=== PATIENT | male | born 1975 | race Caucasian/White ===

== ENCOUNTER 2017-03-06 20:28 | Emergency (ER) | payer BC ==
[~2017-03-06] VITALS: Ht 160 cm; Wt 70.0 kg
[~2017-03-06 20:28] MED LIST: APIX5TAB PO; ASPI81TA81; BACL20TA PO; LEXA10TA PO; LIPI20TA PO; PROT40TA PO
[2017-03-06 20:30] VITALS: BP 121/81; PULSE 72; RESP 16; TEMP 98.4; O2SAT 97
[2017-03-06] MEDS ORDERED: BACT400T PO (20:37)
--- NOTE | 2017-03-06 20:48 | PD ---
HPI Chief Complaint: Bleeding Time Seen by Provider: 20:35 Travel History International Travel<30 days: No Contact w/Intl Traveler<30days: No Traveled to known affect area: No History of Present Illness HPI 41-year-old male complains of persistent bleeding from the left buttock. Patient has history of left buttock abscess for the past week. Patient was seen by colorectal surgeon Dr. Price this morning and had an I&D done in the office. Patient had dressing in place and was advised to change dressing in the daytime. Patient has persistent bleeding on the left buttock since the procedure done this morning. Patient has history of CVA on Eliquis and aspirin daily. Last dose of aspirin was yesterday. Last dose Eliquis was this morning. Patient denies any headache. Patient denies any chest pain or shortness of breath. Patient denies abdominal pain. PFSH Past Medical History High Cholesterol: Yes Cerebrovascular Accident: Yes (05/2014) Social History Alcohol Use: No Tobacco Use: No Substance Use: No Allergies-Medications (Allergen,Severity, Reaction): Coded Allergies: No Known Allergies (Unverified , 03/06/17) Reported Meds & Prescriptions Reported Meds & Active Scripts Active Baclofen 20 Mg Tab 20 Mg PO TID Reported Bactrim (Sulfamethoxazole-Trimethoprim) 400-80 Mg Tab 1 Tab PO BID Eliquis (Apixaban) 5 Mg Tab 5 Mg PO DAILY Protonix (Pantoprazole Sodium) 40 Mg Tab 40 Mg PO DAILY Lipitor (Atorvastatin Calcium) 20 Mg Tab 20 Mg PO HS Lexapro (Escitalopram Oxalate) 10 Mg Tab 10 Mg PO DAILY Aspir-81 (Aspirin) 81 Mg Tabdr DAILY Review of Systems General / Constitutional: No: Fever Eyes: No: Visual changes HENT: No: Headaches Cardiovascular: No: Chest Pain or Discomfort Respiratory: No: Shortness of Breath Gastrointestinal: No: Abdominal Pain Genitourinary: No: Dysuria Musculoskeletal: No: Pain Skin: No Rash Neurologic: No: Weakness Psychiatric: No: Depression Endocrine: No: Polydipsia Hematologic/Lymphatic: No: Easy Bruising Physical Exam Narrative GENERAL: Well-nourished, well-developed patient. SKIN: Focused skin assessment warm/dry. HEAD: Normocephalic. EYES: No scleral icterus. No injection or drainage. NECK: Supple, trachea midline. No JVD or lymphadenopathy. CARDIOVASCULAR: Regular rate and rhythm without murmurs, gallops, or rubs. RESPIRATORY: Breath sounds equal bilaterally. No accessory muscle use. GASTROINTESTINAL: Abdomen soft, non-tender, nondistended. MUSCULOSKELETAL: No cyanosis, or edema. BACK: Nontender without obvious deformity. No CVA tenderness. Patient has about 4 cm open and deep wound of left buttock associated redness swelling tenderness. Patient has a small mild blood oozing from the wound. Data Data Last Documented VS Vital Signs Date Time Temp Pulse Resp B/P (MAP) Pulse Ox O2 Delivery O2 Flow Rate FiO2 03/06/17 20:30 98.4 72 16 121/81 (94) 97 Orders Orders Complete Blood Count With Diff (03/06/17 20:45) Basic Metabolic Panel (Bmp) (03/06/17 20:45) Prothrombin Time / Inr (Pt) (03/06/17 20:45) Act Partial Throm Time (Ptt) (03/06/17 20:45) Iv Access Insert/Monitor (03/06/17 20:45) Ecg Monitoring (03/06/17 20:45) Oximetry (03/06/17 20:45) Lidocai-Epi 1%-1:100,000 Inj (Xylocaine- (03/06/17 21:00) Lidocai-Epi 1%-1:100,000 Inj (Xylocaine- (03/06/17 21:01) Ed Discharge Order (03/06/17 22:44) Labs Laboratory Tests Test 03/06/17 21:00 White Blood Count 9.7 TH/MM3 Red Blood Count 4.30 MIL/MM3 Hemoglobin 12.8 GM/DL Hematocrit 38.3 % Mean Corpuscular Volume 89.1 FL Mean Corpuscular Hemoglobin 29.7 PG Mean Corpuscular Hemoglobin Concent 33.3 % Red Cell Distribution Width 13.1 % Platelet Count 262 TH/MM3 Mean Platelet Volume 8.8 FL Neutrophils (%) (Auto) 60.8 % Lymphocytes (%) (Auto) 27.5 % Monocytes (%) (Auto) 5.8 % Eosinophils (%) (Auto) 4.8 % Basophils (%) (Auto) 1.1 % Neutrophils # (Auto) 5.9 TH/MM3 Lymphocytes # (Auto) 2.7 TH/MM3 Monocytes # (Auto) 0.6 TH/MM3 Eosinophils # (Auto) 0.5 TH/MM3 Basophils # (Auto) 0.1 TH/MM3 CBC Comment DIFF FINAL Differential Comment Prothrombin Time 11.3 SEC Prothromb Time International Ratio 1.0 RATIO Activated Partial Thromboplast Time 31.0 SEC Blood Urea Nitrogen 6 MG/DL Creatinine 0.72 MG/DL Random Glucose 80 MG/DL Calcium Level 8.9 MG/DL Sodium Level 137 MEQ/L Potassium Level 3.6 MEQ/L Chloride Level 106 MEQ/L Carbon Dioxide Level 19.9 MEQ/L Anion Gap 11 MEQ/L Estimat Glomerular Filtration Rate 120 ML/MIN MDM Medical Decision Making Medical Screen Exam Complete: Yes Emergency Medical Condition: Yes Differential Diagnosis Differential diagnosis including bleeding from wound. Narrative Course 41-year-old male with persistent bleeding from I&D wound left buttock. Patient had I&D left buttock abscess this morning. Patient status post CVA and and Patient's on aspirin and Eliquis. I spoke with Dr. Gee advised patient to follow-up with Dr. Farmer. Advised patient to stop Eliquis for one day. Procedures Procedure Narrative 1% lidocaine with epinephrine injected to the wound. Packing applied. The bleeding stopped. Dressing applied. Diagnosis Primary Impression: Bleeding from wound Patient Instructions: General Instructions Additional Instructions: Wound care daily. Follow-up with personal physician. Return if persistent bleeding. Med/Other Pt SpecificInfo: No Change to Meds Disposition: 01 DISCHARGE HOME Condition: Stable Christopher Greer MD Mar 06, 2017 20:48
[2017-03-06] MEDS ORDERED: LIDOCAINE 1%/EPINEPHrine 1:100,000 SOLN 20 ML VIAL INFIL ONE (21:00)
[2017-03-06] MEDS ORDERED: LIDOCAINE 1%/EPINEPHrine 1:100,000 SOLN 50 ML VIAL ONE (21:01)
[2017-03-06 21:51] LABS: AUTOMATED NEUTROPHIL # 5.9 TH/MM3 (1.8-7.7); BASOPHIL # 0.1 TH/MM3 (0-0.2); BASOPHIL % 1.1 % (0.0-2.0); EOSINOPHIL # 0.5 TH/MM3 (0-0.4); EOSINOPHIL % 4.8 % (0.0-4.0); HEMATOCRIT 38.3 % (39.0-51.0); HEMO FLAGS DIFF FINAL; LYMPH % 27.5 % (9.0-44.0); LYMPHOCYTE # 2.7 TH/MM3 (1.0-4.8); MEAN CELL VOLUME 89.1 FL (80.0-100.0); MEAN CORPUSCULAR HEMOGLOBIN 29.7 PG (27.0-34.0); MEAN CORPUSCULAR HGB CONC 33.3 % (32.0-36.0); MONO % 5.8 % (0.0-8.0); NEUT % 60.8 % (16.0-70.0); PLATELET COUNT 262 TH/MM3 (150-450); RED CELL DISTRIBUTION WIDTH 13.1 % (11.6-17.2); WHITE BLOOD COUNT 9.7 TH/MM3 (4.0-11.0)
[2017-03-06 22:00] LABS: PROTHROMBIN TIME - PATIENT 11.3 SEC (9.8-11.6)
[2017-03-06 22:09] LABS: BICARBONATE 19.9 MEQ/L (21.0-32.0); POTASSIUM 3.6 MEQ/L (3.5-5.1)
== END 2017-03-06 23:08 | disposition home or self-care (01) ==
LOC: NEPE 20:28
DX: L02.31 Cutaneous abscess of buttock (principal); E78.5 Hyperlipidemia, unspecified; Z86.73 Personal history of transient ischemic attack (TIA), and cerebral infarction without residual deficits; Z79.82 Long term (current) use of aspirin; Z79.899 Other long term (current) drug therapy
CPT/HCPCS: 80048; 85025; 85610; 85730; 99283

== ENCOUNTER → 2017-08-25 | Day surgery (SDC) | payer BC ==
[~2017-08-25] MED LIST changes: +BACLOFEN PF INJ 10 MG/20 ML KIT IT ONE; +MEPERIDINE HCL 25 MG/ML VIAL IV ONE; +PROPOFOL 200 MG/20 ML AMP IV ONE; +SODIUM CHLOR 0.9% 250 ML BAG ONE; +SODIUM CHLORIDE 0.9% INJ 100 ML ONE; +ceFAZolin INJ 1,000 MG VIAL ONE
--- NOTE | 2017-08-25 09:25 | M6 ---
cc: Natalia Catherine MD DATE: 08/25/2017 DATE OF : 1975 PROCEDURE: Implantation of intrathecal catheter for continuous infusion of intrathecal baclofen. History and physical was completed and signed. Consent was signed. Procedure site was marked. Medications were listed and reconciled. Pain score was recorded. Allergies were noted. Time out was taken. Fluoroscopy time was recorded where applicable. Sedation was administered or directed by Dr. Catherine. The patient was given oxygen. The patient was monitored by a registered nurse. Total procedure time was greater than 15 minutes. PROCEDURE NOTE: IV was started. Blood pressure cuff, pulse oximeter and EKG were applied. The patient was placed in the prone position on a John table, sedated with small amounts of Propofol titrated to effect. Vital signs were monitored and remained stable throughout the procedure. Lumbar area was prepped with alcohol and 10% Betadine solution and draped with sterile drapes. Fluoroscopy was used to visualize the L3-L4 interlaminar space. The skin was infiltrated with 1% Xylocaine, using a 27-gauge needle. Then, an 18-gauge Tuohy needle was advanced into the intrathecal space on the first attempt. There was clear flow or cerebrospinal fluid. Then, a Portex catheter was threaded in a cephalad direction 3 vertebral bodies. Then, an incision was made around the needle. The needle was then removed over the catheter and the stylet was removed from the catheter. A tunneling device was used to tunnel the catheter exit on the patient's left flank. There was clear flow of cerebrospinal fluid through the catheter. Then, the midline incision and the left flank exit site were covered with sterile adhesive dressings. The intrathecal catheter was connected to a pump, which contained baclofen 10 mcg/mL and the patient was started at a continuous rate of 0.4 mL an hour (4 mcg an hour) and he was taken to the recovery room with stable vital signs, neurologically intact. MD LLOYD Harp/PADMA , 08:56 AM , 09:18 AM
== END | disposition home or self-care (01) ==
LOC: PHSDC 06:39
PROVIDERS: ATTEND Pain Medicine Interventional Pain Medicine
DX: G81.12 Spastic hemiplegia affecting left dominant side (principal)
CPT/HCPCS: 62350; 99152; 99153; C2626; J0475; J0690; J2175; J7050

== ENCOUNTER → 2017-09-10 | Outpatient (CLI) | payer BC ==
[~2017-09-10] MED LIST changes: -BACLOFEN PF INJ 10 MG/20 ML KIT IT ONE; +COEN1CAP PO; -MEPERIDINE HCL 25 MG/ML VIAL IV ONE; -PROPOFOL 200 MG/20 ML AMP IV ONE; -SODIUM CHLOR 0.9% 250 ML BAG ONE; -SODIUM CHLORIDE 0.9% INJ 100 ML ONE; -ceFAZolin INJ 1,000 MG VIAL ONE
== END ==
LOC: PHPRE 12:38
PROVIDERS: ATTEND Pain Medicine Interventional Pain Medicine
DX: Z00.00 Encounter for general adult medical examination without abnormal findings (principal)

== ENCOUNTER → 2017-09-17 | Day surgery (SDC) | payer BC ==
[~2017-09-17] VITALS: Ht 160 cm; Wt 73.0 kg
[~2017-09-17] MED LIST changes: +BACLOFEN PF INJ 10 MG/20 ML KIT IT ONE; +BUPIVACAINE/EPINEPHRINE 0.5% PF 30 ML VIAL ONE; +CHLORHEXIDINE GLUCONATE 2 % 1 PACK (2 CLOTHS) TOPICAL PRN; +FAMOTIDINE 20 MG/2 ML VIAL ONE; +LACTATED RINGER'S 1000 ML IV PRN; +LIDOCAINE 1%/EPINEPHrine 1:100,000 SOLN 50 ML VIAL OTHER ONE; +METOPROLOL TARTRATE 25 MG TAB PO PRN; +POVIDONE IODINE 5% (ANTISEPSIS KIT) 4 APPLICATIONS EACH NARE PRN; +SODIUM CHLORID 0.9% 500 ML IV PRN; +SODIUM CHLORIDE 0.9% INJ 100 ML ONE; +VANCOMYCIN 500 MG VIAL ONE; +VANCOMYCIN 500 MG/NS 100 ML IV SCH; +ceFAZolin 1,000 MG/NS 100 ML IV SCH; +ceFAZolin INJ 1,000 MG VIAL ONE
[2017-09-17] MEDS: LIDOCAINE 1%/EPINEPHrine 1:100,000 SOLN 30 ML VIAL ONE ×2 (11:06→12:00)
[2017-09-17 11:08] LABS: PROTHROMBIN TIME - PATIENT 10.1 SEC (9.8-11.6)
[2017-09-17 13:06] VITALS: PULSE 72
--- NOTE | 2017-09-17 13:08 | MP ---
cc: Natalia Catherine MD DATE OF OPERATION: 09/17/2017 DATE OF : 1975 PROCEDURES: 1. Implantation of intrathecal catheter. 2. Implantation of Medtronic SynchroMed pump. PREPROCEDURE DIAGNOSIS: Left spastic hemiparesis. PROCEDURE NOTE: IV was started in the holding area. The patient was given IV antibiotics. The surgical site was marked. The consent form was signed. The patient was taken to the operating room. His abdomen was shaved. The patient was placed in the right lateral decubitus position. All pressure points were checked and padded. He was sedated and given anesthesia with an LMA device. Then the patient's left abdomen, left flank and lumbar area was prepped with ChloraPrep, then draped with sterile towels, then covered with Ioban. Then, fluoroscopy was used to visualize the L2-3 interlaminar space. The skin was infiltrated with 1% Xylocaine using a 27-gauge needle. Then, a modified Tuohy needle from the Tictail kit was advanced under fluoroscopic guidance into the intrathecal space. There was clear flow of cerebral spinal fluid. Then, an intrathecal catheter was threaded through the needle in a cephalad direction three vertebral bodies. Then, an incision was made around the needle. The needle was removed. The stylet was removed from the catheter. There was clear flow of cerebrospinal fluid through the catheter. Then, the catheter was anchored to the underlying ligamentous structures using a Silastic anchoring device circumferentially tied with two 2-0 Ethibond sutures. Then, an incision was made in the patient's left abdomen and a subcutaneous pocket was created. A tunneling device was used to tunnel the intrathecal catheter from the lumbar incision to the left abdominal incision. Then, a Medtronic SynchroMed II pump was filled with baclofen on the side table and covered with a Dacron cuff. The extension catheter was snapped on to the Medtronics pump. A small amount of redundant intrathecal catheter was cut and placed on the side table and measured. Then, the intrathecal catheter was connected to the extension catheter from the pump by snapping onto the connecting device. Then, the Medtronic pump was placed in the subcutaneous pocket with the injection ports facing the skin. A 2-0 Ethibond suture was used to anchor the pump to the underlying fascia. The incisions were irrigated with Betadine and closed with 3-0 Monocryl in the subcuticular tissue and 3-0 nylon on the skin. The incision then was covered with Dermabond and then covered with sterile adhesive dressings, and the patient was taken to the recovery room with stable vital signs. W. MD LLOYD Valentino/PADMA , 12:47 PM , 01:07 PM
[2017-09-17 13:30] VITALS: PULSE 68; TEMP 98.1
[2017-09-17 14:00] VITALS: BP 109/75; PULSE 67; RESP 16; O2SAT 94
== END | disposition home or self-care (01) ==
LOC: PHSDC 10:07
PROVIDERS: ATTEND Pain Medicine Interventional Pain Medicine
DX: G81.12 Spastic hemiplegia affecting left dominant side (principal); I48.91 Unspecified atrial fibrillation
CPT/HCPCS: 00300; 36415; 62350; 62362; 76000; 85610; 85730; C1755; C1772; J0475; J0690; J3010; J3370; J7120

== ENCOUNTER → 2017-10-20 | Day surgery (SDC) | payer BC ==
[~2017-10-20] VITALS: Ht 160 cm; Wt 71.0 kg
[~2017-10-20] MED LIST changes: +ACETAMINOPHEN 325 MG TAB ONE; -BACLOFEN PF INJ 10 MG/20 ML KIT IT ONE; +BUPIVACAINE/EPINEPHRINE 0.5% PF 10 ML VIAL ONE; -BUPIVACAINE/EPINEPHRINE 0.5% PF 30 ML VIAL ONE; +CEFA1SOL IV; +CEFA2SYR IV; +CHLORHEXIDINE GLUCONATE 4% SOLN 120 ML BTL EXTERNAL PRN; -FAMOTIDINE 20 MG/2 ML VIAL ONE; -LIDOCAINE 1%/EPINEPHrine 1:100,000 SOLN 50 ML VIAL OTHER ONE; +NEOMYCIN/POLYMYXIN 1 ML G.U. IRRIGANT ONE; +ONDANSETRON HCL 4 MG/2 ML VIAL ONE; -VANCOMYCIN 500 MG/NS 100 ML IV SCH; +VANCOMYCIN HCL 500 MG ON-CALL/NS 100 ML IV SCH; -ceFAZolin 1,000 MG/NS 100 ML IV SCH; -ceFAZolin INJ 1,000 MG VIAL ONE
[2017-10-20] MEDS: ceFAZolin 1,000 MG/NS 100 ML IV SCH ×4 (07:10→11:40)
[2017-10-20 07:22] LABS: PROTHROMBIN TIME - PATIENT 10.4 SEC (9.8-11.6)
--- NOTE | 2017-10-20 09:43 | MP ---
cc: Natalia Catherine MD DATE OF OPERATION: 10/20/2017 PROCEDURE PERFORMED: 1. Removal of implanted Medtronic SynchroMed pump. 2. Removal of intrathecal catheter. PREPROCEDURE DIAGNOSIS: Infected nonhealing implanted pump. PROCEDURE NOTE: IV was started in the holding area. The patient was given IV antibiotics. The surgical consent form was signed. The surgical site was marked. The patient was taken to the operating room, given general LMA anesthesia, placed in the right lateral decubitus position. His abdomen and lumbar area were prepped with ChloraPrep and draped with sterile drapes. The lumbar incision and the left abdominal incision were irrigated with 0.25% Marcaine containing epinephrine. Then, the lumbar incision was opened and the intrathecal catheter was removed intact. Then, the abdominal incision was opened and the implanted pump was removed intact. Both incisions were irrigated with irrigation and Betadine. Hemostasis was obtained with a Bovie. Closure took place with 3-0 Monocryl in the subcuticular tissue and 3-0 nylon on the skin. The incisions were covered with sterile adhesive dressings, and the patient was taken to the recovery room with stable vital signs, neurologically intact. MD LLOYD Harp/HERNANDO , 09:14 AM , 09:42 AM
[2017-10-20 11:25] VITALS: BP 105/64; PULSE 68; RESP 16; TEMP 98.1; O2SAT 96
--- NOTE | 2017-10-20 14:07 | EKG ---
Date Performed: 10/20/2017 Time Performed: 07:36:32 PTAGE: 42 years EKG: SINUS BRADYCARDIA ST DEVIATION AND MODERATE T-WAVE ABNORMALITY, CONSIDER ANTEROLATERAL ISCH EMIA ABNORMAL ECG NO PREVIOUS TRACING DOCTOR: Soren Hamilton Interpretating Date/Time 10/20/2017 14:02:44
== END | disposition home or self-care (01) ==
LOC: PHSDC 06:10
PROVIDERS: ATTEND Pain Medicine Interventional Pain Medicine
DX: T85.738A Infection and inflammatory reaction due to other nervous system device, implant or graft, initial encounter (principal); Z01.810 Encounter for preprocedural cardiovascular examination; Z01.818 Encounter for other preprocedural examination; B95.61 Methicillin susceptible Staphylococcus aureus infection as the cause of diseases classified elsewhere; K21.9 Gastro-esophageal reflux disease without esophagitis; I48.91 Unspecified atrial fibrillation; I69.354 Hemiplegia and hemiparesis following cerebral infarction affecting left non-dominant side
CPT/HCPCS: 00300; 36415; 62355; 62365; 85610; 85730; 87015; 87070; 87077; 87102; 87116; 87176; 87186; 87205; 87206; 93005; J0690; J2405; J3010; J3370; J7120